=== PATIENT | male | born 1940 | race African-American/Black ===

== ENCOUNTER 2017-05-11 08:57 | Emergency (ER) | payer OTHER ==
[~2017-05-11] VITALS: Ht 167.6 cm; Wt 63.0 kg
[~2017-05-11 08:57] MED LIST: ASPIRIN EC81 M1 PO; CRESTOR; CRESTOR20 MG PO; PERCOCET 5-3251 EACH; PREVACID 30MG C30 M1 PG; ULTRAM 50MG TAB50 MG PO; VERAPAMIL ER120 MG PO; VERAPAMIL ER240 M1 PO; ZESTRIL20 MG PO
[2017-05-11] MEDS ORDERED: SENOKOT-S1 TA1 PO (09:49)
[2017-05-11] MEDS ORDERED: NORCO 5-325 TA1 EACH PO (09:49)
[2017-05-11 10:11] VITALS: BP 123/70
== END 2017-05-11 10:42 | disposition home or self-care (01) ==
LOC: ER 08:57
DX: S22.32XA Fracture of one rib, left side, initial encounter for closed fracture (principal); I10 Essential (primary) hypertension; E78.00 Pure hypercholesterolemia, unspecified; G89.29 Other chronic pain; F10.99 Alcohol use, unspecified with unspecified alcohol-induced disorder; Z87.891 Personal history of nicotine dependence; Z88.6 Allergy status to analgesic agent; W01.0XXA Fall on same level from slipping, tripping and stumbling without subsequent striking against object, initial encounter; Y93.89 Activity, other specified; Y92.098 Other place in other non-institutional residence as the place of occurrence of the external cause; Y99.8 Other external cause status